=== PATIENT | female | born 1985 | race Caucasian/White ===

== ENCOUNTER 2024-11-12 08:47 | Outpatient (CLI) | payer BC, OTHER, SELFPAY ==
--- NOTE | ~2024-11-12 | XR_ITS ---
XR abdomen/kub 1V 11/12/2024 12:06 INDICATION: Diarrhea TECHNIQUE: KUB COMPARISON: None FINDINGS: Bowel gas pattern is normal. Moderate colonic fecal loading. There is no evidence of free a ir, mass, organomegaly, ascites or obstruction. No abnormal calculi are seen. The bones appear inta ct. IMPRESSION: 1: No acute abdominal abnormality identified. Reviewed, dictated and finalized at location B.
--- OUTSIDE RECORDS SUMMARY | 2024-11-12 08:55 | XMS_ITS | Clinical Summary ---
Author Organization [facility] Address [address] [place] [id number] Care Team Providers Care Metal Wire Technician Name Role Phone Noni Franco Eli BUSINESS INTELLIGENCE DIRECTOR Primary Care Provider [phone] Allergies No known active allergies Medications ibuprofen (ADVIL,MOTRIN) 400 mg tablet Take by mouth every 6 (six) hours as needed for pain Active Active Problems No known active problems Family History Medical History Relation Name Comments Heart disease Father Hypertension Father Arthritis Mother Relation Name Status Comments Father Mother Social History Tobacco Use Types Packs/Day Years Used Date Smoking Tobacco: Never Personal Safety Answer Date Recorded Getting School Help Needed Not on file 06/29 Comments Unknown Sex and Gender Information Value Date Recorded Sex Assigned at Not on file Legal Sex Female 7:20 PM PALM GATHERER Gender Identity Not on file Sexual Orientation Not on file Obstetrics History Last Filed Vital Signs Vital Sign Reading Time Taken Comments Blood Pressure - - Pulse - - Temperature - - Respiratory Rate - - Oxygen Saturation - - Inhaled Oxygen Concentration - - Weight 88.5 kg (195 lb) 03/29/2019 10:44 AM PALM GATHERER Height 154.9 cm (5' 1) 03/29/2019 10:44 AM PALM GATHERER Body Mass Index 36.84 03/29/2019 10:44 AM PALM GATHERER Plan of Treatment Not on file Insurance [id number] ACCESS CHOICE Care Teams Metal Wire Technician Relationship Specialty Start Date End Date Noni Franco NP [address] [place] [address] [place] [id number] PCP - General Nurse Practitioner 03/21/19
--- OUTSIDE RECORDS SUMMARY | 2024-11-12 08:55 | XMS_ITS | Referral Summary ---
Author Organization [facility] Address [address] [place] [id number] Care Team Providers Care Retail Account Specialist Name Role Phone Noni Franco Eli MATERIAL HANDLER LOADER Primary Care Provider [phone] Allergies No known active allergies Medications ibuprofen (ADVIL,MOTRIN) 400 mg tablet Take by mouth every 6 (six) hours as needed for pain Active Active Problems No known active problems Social History Tobacco Use Types Packs/Day Years Used Date Smoking Tobacco: Never Personal Safety Answer Date Recorded Getting School Help Needed Not on file 06/29 Comments Unknown Sex and Gender Information Value Date Recorded Sex Assigned at Not on file Legal Sex Female 7:20 PM EQUAL OPPORTUNITY DIRECTOR Gender Identity Not on file Sexual Orientation Not on file Last Filed Vital Signs Vital Sign Reading Time Taken Comments Blood Pressure - - Pulse - - Temperature - - Respiratory Rate - - Oxygen Saturation - - Inhaled Oxygen Concentration - - Weight 88.5 kg (195 lb) 03/29/2019 10:44 AM EQUAL OPPORTUNITY DIRECTOR Height 154.9 cm (5' 1) 03/29/2019 10:44 AM EQUAL OPPORTUNITY DIRECTOR Body Mass Index 36.84 03/29/2019 10:44 AM EQUAL OPPORTUNITY DIRECTOR Plan of Treatment Not on file Insurance [employer] ACCESS CHOICE Care Teams Retail Account Specialist Relationship Specialty Start Date End Date Noni Franco NP [address] [place] [address] [address] [place] [address] PCP - General Nurse Practitioner 03/21/19
--- OUTSIDE RECORDS SUMMARY | 2024-11-12 08:55 | XMS_ITS | Clinical Summary ---
Author Organization [facility] Address [address] [place] [address] Phone Care Team Providers Care Convertible Sofa Bedspring Tester Name Role Phone Daly Tan DO Primary Care Provider [phone] Allergies No known active allergies Medications ALPRAZolam (Xanax) 0.25 mg tabletIndicatio ns:Situational mixed anxiety and depressive disorder Take 1 Tablet (0.25 mg) by mouth 1 time daily as needed for Anxiety. 10 Tablet 4 Active Additional Information Patient not taking.Reported on 02/14/2024 multivitamin (DAILY-MARIO) tablet Take 1 Tablet by mouth daily. Active Lactobac no.41/Bifidobac t no.7 (PROBIOTIC-10 ORAL) Take by mouth. Activ e buPROPion HCL (Wellbutrin SR) 150 mg Sustained Release 12 hour tablet Take 1 Tablet (150 mg) by mouth daily in the morning. 30 Tablet 1 4 Active Additional Information Patient not taking.Reported on 02/14/2024 MAGNESIUM OXIDE ORAL Take by mouth. Activ e hydrOXYzine HCL (ATARAX) 25 mg tablet Take 1 Tablet (25 mg) by mouth 3 times daily as needed for Anxiety. 30 Tablet 4 Active fluticasone propionate (FLONASE) 50 mcg/spray [place], Suspension nasal inhaler Administer 2 Sprays in each nostril daily. 16 Gram 4 Active Active Problems Problem Noted Date Diagnosed Date Generalized anxiety disorder 02/14/2024 Pain of left eye 04/14/2022 Assessment & Plan (04/14/2022 4:29 PM VALUE ENGINEER): Current disease status: Symptomatic. Recommend starting Garamycin eyedrops 4 times daily to the left eye. She may continue with cool or warm compresses as she sees fit. Recommend continuing with ibuprofen since she did not find it helpful. If she would have continued discomfort over the next day or 2 or if there is any worsening she should notify the office and we would make an ophthalmology referral. Obesity (BMI 35.0-39.9 without comorbidity) 12/17 Overview (09/14/2022): Wt Readings from Last 10 Encounters: 09/14/22 94.8 kg (209 lb) 04/14/22 90.7 kg (200 lb) 01/12/22 86.6 kg (191 lb) 07/17/20 86.2 kg (190 lb) 12/13/17 82.1 kg (181 lb) 08/15/16 79 kg (174 lb 3.2 oz) - Diet: Somewhat follows weight watchers, some binge eating - Exercise: More stationary at work, was walking a few month ago but feet started hurting Assessment & Plan (09/14/2022 10:03 AM CDT): Recommended increased exercise and dietary control. Offered dietary modification suggestions including the increase plant-based foods including fruits, veggies, whole grains, legumes, nuts and seeds along with the reduction of fats and processed meats. Assessment & Plan (01/12/2022 3:42 PM CDT): Current disease status: Suboptimal control. Body mass index is 36.09 kg/m . Wt Readings from Last 3 Encounters: 01/12/22 86.6 kg (191 lb) 07/17/20 86.2 kg (190 lb) 12/13/17 82.1 kg (181 lb) Abnormal high BMI: Patient counseled on lifestyle modifications including weight loss and daily exercise. Recommend watching the diet eliminating sweets and reducing refined carbohydrates. Recommend also reducing foods containing saturated fat and cholesterol. Whole grains, fruits, vegetables and lean cuts of meat preferring poultry and fish are recommended. Excess calories no matter the source contribute to weight gain. Food portion control is also important and helpful to effect weight loss. Recommend participating in regularly scheduled moderate exercise. 20 - 30 minutes daily 5 times per week. Adequate sleep of 7 to 9 hours is recommended. Too little sleep hampers metabolism and contributes to weight gain. Recommend she continue with her dietary and exercise efforts. Other chest pain 01/12/2022 Assessment & Plan (01/12/2022 3:41 PM CDT): Current disease status: Symptomatic. Recommend continued observation. She will have laboratory studies performed. If she has persistent or worsening symptoms would consider a stress test. Binge eating disorder 01/12/2022 Assessment & Plan (05/23/2023 9:09 AM VALUE ENGINEER): No recent issues. Assessment & Plan (09/14/2022 10:31 AM CDT): Suboptimal control. Reviewed with patient that psychotherapy is first-line treatment. Discussed pros and cons of weight loss medications. Avoid strict dieting. Increase activity level. Assessment & Plan (01/12/2022 3:41 PM CDT): Current disease status: Stable. She feels that she is managing with counseling at this time. She is notify the office of any concerning development. Healthcare maintenance 01/12/2022 Elevated BP without diagnosis of hypertension Assessment & Plan (01/12/2022 3:41 PM CDT): Current disease status: Suboptimal control. BP Readings from Last 3 Encounters: 01/12/22 (!) 146/88 07/17/20 130/89 12/13/17 120/80 She was advised to monitor her blood pressure. If she would consistently have systolic readings in excess of 140 and/or diastolic readings consistently above 90 she was advised to notify the office. Recommend eating a heart healthy diet limiting daily salt intake to 2000 mg. Recommend trying to maintain a healthy body weight. Aerobic exercise is beneficial. High blood pressure silently causes progressive damage to arteries and veins. This can lead to atherosclerosis (hardening of the arteries) with plaque formation and decreased blood flow. Organ systems affected include the BRAIN (with vascular dementia, TIA and stroke risk); KIDNEY (uncontrolled high blood pressure is the most common cause of kidney failure leading to dialysis) and HEART (with increased risk for heart attack and congestive heart failure. Peripheral vascular disease and retinal changes in the eye can also result from elevated blood pressure. Early intervention is critical to prevent these developments. Recommend she continue to monitor her blood pressure. If there is persistent elevation would recommend starting treatment. Pain in both feet 01/12/2022 Assessment & Plan (01/12/2022 3:40 PM CDT): Current disease status: Symptomatic. Recommend shoes with good arch support. Recommend podiatry referral for further evaluation and recommendation. Yeast vaginitis 01/12/2022 Assessment & Plan (09/14/2022 10:32 AM CDT): Vaginitis panel. Decrease beer consumption. Assessment & Plan (01/12/2022 3:40 PM CDT): Current disease status: Stable. Recommend Diflucan 100 mg once daily for 1 dose. Alcohol abuse 12/13/2017 Overview (05/23/2023): Lab Results Component Value Date/Time ALT 29 01/18/2022 07:43 AM AST 25 01/18/2022 07:43 AM ALKPHOS 49 01/18/2022 07:43 AM - Drinks: 6-8 beers vs 2-3 cocktails twice a week Assessment & Plan (05/23/2023 9:09 AM VALUE ENGINEER): Watching intake closely. Recently decreased to drinking weekends only. Continue to monitor. Assessment & Plan (09/14/2022 10:07 AM CDT): Not at goal. Recommend cutting back during the week and replace it with walking. Assessment & Plan (01/12/2022 3:40 PM CDT): Current disease status: Stable. Recommend she consider trying to limit beer consumption to 2 beers per day or less. Resolved Problems Problem Noted Date Diagnosed Date Resolved Date MDD (major depressive disord er), recurrent episode, moderate 12/13/2017 01/12/2022 Overview (01/12/2022): MEDICATION(S): Anxiety state 12/13/2017 01/12/2022 Overview (01/12/2022): MEDICATION(S): Obesity (BMI 30.0-34.9) 12/13/201712/17 Encounters Date Type Department Care Team Description 10/30/2024 External Device Data STL ABSTRACTION Provider, Abstract 10/29/2024 External Device Data STL ABSTRACTION Provider, Abstract 10/08/2024 External Device Data ST[facility] ABSTRACTION Provider, Abstract 10/01/2024 External Device Data STL ABSTRACTION Provider, Abstract 09/05/2024 External Device Data ST[facility] ABSTRACTION Provider, Abstract 09/04/2024 External Device Data STL ABSTRACTION Provider, Abstract 09/03/2024 External Device Data STL ABSTRACTION Provider, Abstract from Last 3 Months Immunizations Immunization Administration Dates Next Due (HAVRIX/VAQTA)(19 YRS UP) HE PATITIS A VACCINE ADULT DOSAGE 1 ML IMM 12/25/2007,01/12/2006 (M-M-R II/PRIORIX)(12 MO UP) MEASLES, MUMPS AND RUBELLA VIRUS VACCINE, 0.5 ML IM/SUBCUT 09/25/1991,05/08/1987 (TDVAX)(7 YRS UP) TETANUS AN D DIPHTHERIA TOXOIDS, ADSORBED (2 LF OF TETANUS TOXOID AND 2 LF OF DIPHTHERIA TOXOID), 0.5ML (PF), IM 12/26/2001 Diptheria, Tetanus Toxoids, And Whole Cell Pertussis Vaccine (DTP), for intramuscular use 09/25/1991,09/17/1987,1986,07/17,1986 Hepatitis B Vaccine Adult IM Patient Supplied 01/12/2006 Hepatitis B Vaccine, Unspeci fied Formulation 02/02/1999,07/28/1998 Family History Medical History Relation Name Comments Diabetes Father Alex Fernandes Healthy Father Alex Fernandes Heart Disease Father Alex Fernandes Melanoma Father Alex Fernandes Skin Cancer Father Alex Fernandes Arthritis-rheumatoid Mother Lyubov Fernandes Healthy Mother Lyubov Fernandes Osteoporosis Mother Lyubov Fernandes Relation Name Status Comments Father Alex Fernandes Alive Mother Lyubov Fernandes Alive Social History Tobacco Use Types Packs/Day Years Used Date Smoking Tobacco: Never Passive Smoke Exposure: Never Smokeless Tobacco: Former Chew Tobacco Cessation:Counseling Given: No Alcohol Use Standard Drinks/Week Comments Yes 3 (1 standard drink = 0.6 oz pure alcohol) cut back on drinking, weekends 3-4 at a time Comments No Sex and Gender Information Value Date Recorded Sex Assigned at Not on file Legal Sex Female 4:28 AM VALUE ENGINEER Gender Identity Not on file Sexual Orientation Not on file Last Filed Vital Signs Vital Sign Reading Time Taken Comments Blood Pressure 124/86 02/14/2024 9:58 AM CDT Pulse 88 02/14/2024 9:58 AM CDT Temperature 36.8 C (98.2 F) 02/14/2024 9:58 AM CDT Respiratory Rate 16 09/12/2023 11:12 AM CDT Oxygen Saturation 97% 02/14/2024 9:58 AM CDT Inhaled Oxygen Concentration - - Weight 86.2 kg (190 lb) 02/14/2024 9:58 AM CDT Height 154.9 cm (5' 1) 02/14/2024 9:58 AM CDT Body Mass Index 35.9 02/14/2024 9:58 AM CDT Plan of Treatment Health Maintenance Due Date Last Done Comments HPV VACCINES (1 - 3-dose series) 2001 DTAP/TDAP/TD VACCINES (6 - Tdap) 12/27/2001 12/26/2001, 09/25/1991, 09/17/1987, Additional history exists HPV/Cotest (21-29) 2007 HPV/Cotest (30-65) 01/06/2016 CERVICAL CANCER SCREENING 06/26/2020 PAP SMEAR 06/26/2020 06/26/2017 (Prev iously completed) COVID-19 Vaccine ( - 2023-2 5 season) 2023 03/04/2021, 07/13/2020, 06/15/2020 Preventative Visit- Commercial 04/17/2024 INFLUENZA VACCINE (#1) 2024 05/23/2023, 2021 Pre-Diabetes and Diabetes Screening 01/18/2025 01/18/2022 HEPATITIS B VACCINES Completed 01/12/2006, 02/02/1999, 07/28/1998 Procedures Procedure Name Priority Date/Time Associated Diagnosis Comments HEMOGLOBIN A1C Routine 01/18/2022 7:43 AM CDT Other chest pain from Last 3 Months or Most Recently Relevant to Health Maintenance Results * HEMOGLOBIN A1C (01/18/2022 7:43 AM CDT) HEMOGLOBIN A1C 5.0 <5.7 % of total Hgb [facility] Comment: For the purpose of screening for the presence of diabetes: <5.7% Consistent with the absence of diabetes 5.7-6.4% Consistent with increased risk for diabetes (prediabetes) > or =6.5% Consistent with diabetes This assay result is consistent with a decreased risk of diabetes. Currently, no consensus exists regarding use of hemoglobin A1c for diagnosis of diabetes in children. According to [place] Diabetes Association (ADA) guidelines, hemoglobin A1c <7.0% represents optimal control in non- diabetic patients. Different metrics may apply to specific patient populations. Standards of Medical Care in Diabetes(ADA). ESTIMATED AVERAGE GLUCOSE (MG/DL) 97 mg/dL [facility] ESTIMATED AVERAGE GLUCOSE (MMOL/L) 5.4 mmol/L [facility] Comment: FASTING:YES FASTING: YES Test Performed at: [place] [address] [address] [place] [phone] EuniceMillie Galvan Vo Blood 01/18/2022 7:43 AM CDT 01/18/2022 7:46 AM CDT us Catarino Salgado MD CHEMISTRY ORDERABLES Final R esult [facility] [phone] [facility] [place] [address] [address] [place] [phone] from Last 3 Months or Most Recently Relevant to Health Maintenance Insurance [facility] BLUE ACCESS CHOICE Care Teams Convertible Sofa Bedspring Tester Relationship Specialty [place] [id number] [address] PCP - General Family Practice 10/26/23
[2024-11-12 18:44] LABS: Hematocrit 44.3 % (37.0-47.0); Hemoglobin 14.0 g/dL (12.0-15.0); Immature Granulocyte Percent A 0.3 % (0-0.5); Lymphocytes Absolute Auto 1.74 K/mm3 (0.9-3.2); Mean Corpuscular HGB Conc 31.6 g/dl (32-36); Mean Corpuscular Hemoglobin 29.8 pg (26-34); Mean Corpuscular Volume 94.3 fl (80-100); Nucleated Red Blood Cells Absolute Auto 0.000 K/mm3 (0.0-0.012); Nucleated Red Blood Cells Perc 0.0 % (0.0-0.2); Platelet Count Result 221 k/mm3 (150-375); Red Blood Count 4.70 M/mm3 (4.2-5.4); White Blood Count 6.1 K/mm3 (4.5-10.0)
[2024-11-12 19:38] LABS: Alanine Aminotransferase 23 U/L (6-35); Albumin Level 4.3 g/dL (3.5-5.1); Alkaline Phosphatase 48 U/L (38-126); Anion Gap 4 mmol/L (4-12); Aspartate Amino Transferase 50 U/L (14-36); Bilirubin,Total 0.8 mg/dL (0.2-1.3); Blood Urea Nitrogen 15 mg/dL (7-17); Calcium 9.3 mg/dL (8.4-10.2); Carbon Dioxide 26 mmol/L (22-30); Chloride 101 mmol/L (98-107); Estimated Glomerular Filt Rate > 60; Glucose 88 mg/dL (65-110); Potassium 4.6 mmol/L (3.4-5.0); Sodium 131 mmol/L (137-145); Total Protein 7.2 g/dL (6.3-8.2)
[2024-11-14 10:08] LABS: FSH 7.2 mIU/mL (.); LH 8.1 mIU/mL (.)
[2024-11-16 23:07] LABS: Free Testosterone (Direct) 0.5 pg/mL (0.0-4.2)
[2024-11-20 01:07] LABS: Estradiol, Sensitive 38.8 pg/mL (.)
== END 2024-11-12 08:48 | disposition home or self-care (01) ==
LOC: ANHBWCLAB 08:50
PROVIDERS: PCP Nurse Practitioner Adult Health; Visit Provider Obstetrics & Gynecology
DX: R19.7 Diarrhea, unspecified (principal); R23.2 Flushing
CPT/HCPCS: 36415; 74018; 80048; 80076; 82670; 83001; 83002; 84144; 84402; 84403; 85025